=== PATIENT | male | born 1980 | race Caucasian/White ===

== ENCOUNTER 2018-05-22 12:15 | Emergency (ER) | payer OTHER ==
[2018-05-22 12:37] VITALS: TEMP 98.2
--- NOTE | 2018-05-22 13:23 | ED ---
General Adult HPI - General Source: patient, RN notes reviewed Mode of arrival: ambulatory Limitations: no limitations <Colton Green - Last Filed: 05/22/18 13:21> <Valentina White - Last Filed: 05/22/18 19:34> - General Chief complaint: Psychiatric Symptoms Stated complaint: Mental health Time Seen by Provider: 05/22/18 12:48 - History of Present Illness Initial comments: Patient 38-year-old male presenting to the emergency room today with a chief complaint of needing psychiatric evaluation. He does admit to suicidal thoughts. He does admit that 10 days ago he took approximately 20 mg of this and asked him was drinking alcohol. He states that he was passed out for few days. He states that when he came to he stopped taking Chantix which she started a few months ago and believes that maybe this was causing some of his proximal. He does admit that he's had increased family problems at home. He states that he's worried about violating his probation. Patient states still having thoughts of hurting himself by taking a bunch of pills. Patient denies any other complaints or symptoms. Patient denies any recent fever, chills, shortness of breath, chest pain, back pain, abdominal pain, nausea or vomiting, numbness or tingling, dysuria or hematuria, constipation or diarrhea, headaches or visual changes, or any other complaints. (Colton Green) - Related Data Home Medications Medication Instructions Recorded Confirmed ALPRAZolam [Xanax] 1 mg PO BID PRN 05/22/18 05/22/18 Allergies Allergy/AdvReac Type Severity Reaction Status Date / Time No Known Allergies Allergy Verified 05/22/18 12:59 Review of Systems ROS Other: All systems not noted in ROS Statement are negative. <Colton Green - Last Filed: 05/22/18 13:21> ROS Other: All systems not noted in ROS Statement are negative. <Valentina White - Last Filed: 05/22/18 19:34> ROS Statement: Those systems with pertinent positive or pertinent negative responses have been documented in the HPI. Past Medical History Additional Past Medical History / Comment(s): prolonged qt syndrome repaired History of Any Multi-Drug Resistant Organisms: None Reported Past Surgical History: Orthopedic Surgery Additional Past Surgical History / Comment(s): heart surg Past Psychological History: Anxiety, Bipolar, Depression Smoking Status: Current every day smoker Past Alcohol Use History: Abuse Past Drug Use History: None Reported, Prescription Drug Abuse <PeterColton - Last Filed: 05/22/18 13:21> General Exam Limitations: no limitations <GreenColton - Last Filed: 05/22/18 13:21> <Valentina White - Last Filed: 05/22/18 19:34> - General Exam Comments Initial Comments: General: The patient is awake and alert, in no distress, and does not appear acutely ill. Eye: Pupils are equal, round and reactive to light, extra-ocular movements are intact. No nystagmus. There is normal conjunctiva bilaterally. No signs of icterus. Ears, nose, mouth and throat: There are moist mucous membranes and no oral lesions. Neck: The neck is supple, there is no tenderness or JVD. Cardiovascular: There is a regular rate and rhythm. No murmur, rub or gallop is appreciated. Respiratory: Lungs are clear to auscultation, respirations are non-labored, breath sounds are equal. No wheezes, stridor, rales, or rhonchi. Musculoskeletal: Normal ROM, no tenderness. Strength 5/5. Sensation intact. Pulses equal bilaterally 2+. Neurological: A&O x 3. CN II-XII intact, There are no obvious motor or sensory deficits. Coordination appears grossly intact. Speech is normal. Skin: Skin is warm and dry and no rashes or lesions are noted. Psychiatric: Cooperative (PeterColton) Vital Signs 05/22/18 12:30 Temperature 98.2 F Pulse Rate 90 Respiratory 18 Rate Blood Pressure 144/89 Medical Decision Making <Colton Green - Last Filed: 05/22/18 13:21> <Valentina White - Last Filed: 05/22/18 19:34> - Medical Decision Making 38 old male patient presented to the emergency department today for suicidal ideation. Patient was seen and evaluated by emergency psychiatric services, assaults that he would benefit from admission. Patient will be transferred to [facility] crisis bed. (Valentina White) - Lab Data Lab Results 05/22/18 Range/Units 14:00 Urine Opiates Screen Not Detected (NotDetected) Ur Oxycodone Screen Not Detected (NotDetected) Urine Methadone Screen Not Detected (NotDetected) Ur Propoxyphene Screen Not Detected (NotDetected) Ur Barbiturates Screen Not Detected (NotDetected) U Tricyclic Antidepress Not Detected (NotDetected) Ur Phencyclidine Scrn Not Detected (NotDetected) Ur Amphetamines Screen Not Detected (NotDetected) U Methamphetamines Scrn Not Detected (NotDetected) U Benzodiazepines Scrn Not Detected (NotDetected) Urine Cocaine Screen Not Detected (NotDetected) U Marijuana (THC) Screen Not Detected (NotDetected) Disposition <Colton Green - Last Filed: 05/22/18 13:21> - Out of Hospital Transfer - Req. Specs Out of Hospital Transfer - Requested Specifics: Psychiatric Non-ICU (Crisis bed in [facility]) <Valentina White - Last Filed: 05/22/18 19:34> Clinical Impression: Suicidal ideation, Depression Disposition: TRANSFER TO PSYCH HOSP/UNIT Condition: Serious Referrals: None,Stated [Primary Care Provider] - 1-2 days
[2018-05-22 15:00] LABS: Amphetamine Screen,Urine Not Detected (NotDetected); Barbiturate Screen,Urine Not Detected (NotDetected); Benzodiazepines Screen,Urine Not Detected (NotDetected); Cocaine Screen,Urine Not Detected (NotDetected); Methadone Screen, Urine Not Detected (NotDetected); Opiate Screen,Urine Not Detected (NotDetected); Oxycodone Screen, Urine Not Detected (NotDetected); Phencyclidine Screen,Urine Not Detected (NotDetected); Tricyclic Antidepressant,Urine Not Detected (NotDetected); Urn Cannabinoid Scrn Not Detected (NotDetected)
[2018-05-22 20:02] VITALS: BP 110/91; PULSE 71; RESP 20
== END 2018-05-22 20:09 ==
LOC: EC 12:15
DX: F32.9 Major depressive disorder, single episode, unspecified (principal); R45.851 Suicidal ideations; F17.200 Nicotine dependence, unspecified, uncomplicated; Z86.79 Personal history of other diseases of the circulatory system; Z98.890 Other specified postprocedural states
CPT/HCPCS: 80306; 82075; 99285

== ENCOUNTER 2021-02-25 04:54 | Inpatient (IN) | payer OTHER ==
[2021-02-25] MEDS ORDERED: SODIUM CHLORIDE 0.9% 500 ML 500 ML IV STA (05:05)
[2021-02-25] MEDS ORDERED: SODIUM CHLORIDE 0.9% 1,000 ML IV STA (05:05)
[2021-02-25] MEDS ORDERED: THIAMINE 100 MG/ML 2 ML VIAL IM STA (05:05)
[2021-02-25] MEDS ORDERED: LORazepam 2 MG/ML INJ IV STA (05:06)
[2021-02-25] MEDS ORDERED: DIAZEPAM 5 MG/ML 2 ML INJ IVP STA (05:06)
--- NOTE | 2021-02-25 05:08 | ED ---
Altered Mental Status HPI - General Chief Complaint: Neuro Symptoms/Deficit Stated Complaint: Tremors Time Seen by Provider: 02/25/21 05:05 Source: patient, EMS, RN notes reviewed, old records reviewed Mode of arrival: EMS Limitations: altered mental status, physical limitation - History of Present Illness Initial Comments: This is a 41-year-old male to the ER for evaluation patient is very anxious tachycardic with tremorous shaking difficulty thinking. Patient has difficulty answering questions and has history of psychiatric illness admits to drinking. Patient states having difficulty walking and inability to think clearly. He does have history of same with prior hospital admission at [facility] Complaint: altered mental status, confusion, other (Withdrawal type symptoms) -: hour(s) Consistency of Symptoms: getting worse Context: alcohol abuse Associated Symptoms: weakness, difficulty walking - Related Data Home Medications Medication Instructions Recorded Confirmed ALPRAZolam [Xanax] 1 mg PO BID PRN 05/22/18 02/25/21 Atorvastatin [Lipitor] 10 mg PO HS 02/25/21 02/25/21 Brexpiprazole [Rexulti] 2 mg PO HS 02/25/21 02/25/21 Escitalopram [Lexapro] 20 mg PO HS 02/25/21 02/25/21 Meloxicam 15 mg PO HS 02/25/21 02/25/21 hydrOXYzine pamoate [hydrOXYzine 50 mg PO HS PRN 02/25/21 02/25/21 PAMOATE] lamoTRIgine [LaMICtal] 100 mg PO BID 02/25/21 02/25/21 Allergies Allergy/AdvReac Type Severity Reaction Status Date / Time No Known Allergies Allergy Verified 02/25/21 09:18 Review of Systems ROS Statement: Those systems with pertinent positive or pertinent negative responses have been documented in the HPI. ROS Other: All systems not noted in ROS Statement are negative. Past Medical History Additional Past Medical History / Comment(s): prolonged qt syndrome repaired History of Any Multi-Drug Resistant Organisms: None Reported Past Surgical History: Orthopedic Surgery Additional Past Surgical History / Comment(s): heart surg Past Psychological History: Anxiety, Bipolar, Depression Smoking Status: Current every day smoker Past Alcohol Use History: Abuse Past Drug Use History: None Reported, Prescription Drug Abuse General Exam Limitations: altered mental status, physical limitation General appearance: alert, anxious, in distress Head exam: Present: atraumatic, normocephalic, normal inspection Eye exam: Present: normal appearance, PERRL, EOMI. Absent: scleral icterus, conjunctival injection, periorbital swelling ENT exam: Present: normal exam, mucous membranes moist Neck exam: Present: normal inspection. Absent: tenderness, meningismus, lymphadenopathy Respiratory exam: Present: normal lung sounds bilaterally. Absent: respiratory distress, wheezes, rales, rhonchi, stridor Cardiovascular Exam: Present: normal rhythm, tachycardia, normal heart sounds. Absent: systolic murmur, diastolic murmur, rubs, gallop, clicks GI/Abdominal exam: Present: soft, normal bowel sounds. Absent: distended, tenderness, guarding, rebound, rigid Extremities exam: Present: normal inspection, full ROM, normal capillary refill. Absent: tenderness, pedal edema, joint swelling, calf tenderness Back exam: Present: normal inspection Neurological exam: Present: alert, oriented X3, CN II-XII intact Psychiatric exam: Present: normal affect, normal mood Skin exam: Present: warm, dry, intact, normal color. Absent: rash Course Vital Signs 02/25/21 02/25/21 02/25/21 04:56 06:00 07:50 Temperature 100.0 F H 98.9 F Pulse Rate 124 H 117 H 115 H Respiratory 18 18 18 Rate Blood Pressure 142/91 104/78 125/86 O2 Sat by Pulse 97 97 97 Oximetry 02/25/21 02/25/21 02/25/21 10:57 11:33 13:42 Temperature 99 F 98 F Pulse Rate 128 H 121 H 122 H Respiratory 20 20 20 Rate Blood Pressure 156/78 153/104 146/99 O2 Sat by Pulse 98 96 97 Oximetry 02/25/21 14:31 Temperature 98.2 F Pulse Rate 101 H Respiratory 18 Rate Blood Pressure 115/72 O2 Sat by Pulse 92 L Oximetry - Reevaluation(s) Reevaluation #1: 02/25/21 Medical record is reviewed Patient does appear to be in significant DTs with severe left foot abnormalities Patient is chronic alcoholic to be admitted for close monitoring Medical Decision Making - Medical Decision Making 41 male to the ED for active DTs, weakness, HypoK and Mg, patient to be admitted for close monitoring. Patient is requiring significant amount of sedation, but heart rate is improving, patient's perspiring is , he is continually complains of inability to walk and shaking - Lab Data Result diagrams: 02/25/21 05:14 02/25/21 16:17 Lab Results 02/25/21 02/25/21 02/25/21 Range/Units 05:14 05:14 05:14 WBC 4.6 (3.8-10.6) k/uL RBC 3.89 L (4.30-5.90) m/uL Hgb 12.7 L (13.0-17.5) gm/dL Hct 35.3 L (39.0-53.0) % MCV 90.7 (80.0-100.0) fL MCH 32.7 (25.0-35.0) pg MCHC 36.0 (31.0-37.0) g/dL RDW 15.2 (11.5-15.5) % Plt Count 41 L (150-450) k/uL MPV 9.8 Neutrophils % 48 % Lymphocytes % 40 % Monocytes % 7 % Eosinophils % 2 % Basophils % 1 % Neutrophils # 2.2 (1.3-7.7) k/uL Lymphocytes # 1.8 (1.0-4.8) k/uL Monocytes # 0.3 (0-1.0) k/uL Eosinophils # 0.1 (0-0.7) k/uL Basophils # 0.0 (0-0.2) k/uL Manual Slide Review Performed Sodium 137 (137-145) mmol/L Potassium 2.8 L (3.5-5.1) mmol/L Chloride 101 (98-107) mmol/L Carbon Dioxide 23 (22-30) mmol/L Anion Gap 13 mmol/L BUN 10 (9-20) mg/dL Creatinine 0.65 L (0.66-1.25) mg/dL Est GFR (CKD-EPI)AfAm >90 (>60 ml/min/1.73 sqM) Est GFR (CKD-EPI)NonAf >90 (>60 ml/min/1.73 sqM) Glucose 127 H (74-99) mg/dL Lactic Ac Sepsis Rflx Plasma Lactic Acid Ramos 3.5 H* (0.7-2.0) mmol/L Calcium 9.2 (8.4-10.2) mg/dL Phosphorus 4.5 (2.5-4.5) mg/dL Magnesium 1.4 L (1.6-2.3) mg/dL Total Bilirubin 0.2 (0.2-1.3) mg/dL AST 78 H (17-59) U/L ALT 87 H (4-49) U/L Alkaline Phosphatase 44 (38-126) U/L Creatine Kinase 761 H (55-170) U/L Troponin I (0.000-0.034) ng/mL Total Protein 5.8 L (6.3-8.2) g/dL Albumin 4.0 (3.5-5.0) g/dL Lipase 255 (23-300) U/L 02/25/21 02/25/21 Range/Units 05:14 05:45 WBC (3.8-10.6) k/uL RBC (4.30-5.90) m/uL Hgb (13.0-17.5) gm/dL Hct (39.0-53.0) % MCV (80.0-100.0) fL MCH (25.0-35.0) pg MCHC (31.0-37.0) g/dL RDW (11.5-15.5) % Plt Count (150-450) k/uL MPV Neutrophils % % Lymphocytes % % Monocytes % % Eosinophils % % Basophils % % Neutrophils # (1.3-7.7) k/uL Lymphocytes # (1.0-4.8) k/uL Monocytes # (0-1.0) k/uL Eosinophils # (0-0.7) k/uL Basophils # (0-0.2) k/uL Manual Slide Review Sodium (137-145) mmol/L Potassium (3.5-5.1) mmol/L Chloride (98-107) mmol/L Carbon Dioxide (22-30) mmol/L Anion Gap mmol/L BUN (9-20) mg/dL Creatinine (0.66-1.25) mg/dL Est GFR (CKD-EPI)AfAm (>60 ml/min/1.73 sqM) Est GFR (CKD-EPI)NonAf (>60 ml/min/1.73 sqM) Glucose (74-99) mg/dL Lactic Ac Sepsis Rflx Y Plasma Lactic Acid Ramos (0.7-2.0) mmol/L Calcium (8.4-10.2) mg/dL Phosphorus (2.5-4.5) mg/dL Magnesium (1.6-2.3) mg/dL Total Bilirubin (0.2-1.3) mg/dL AST (17-59) U/L ALT (4-49) U/L Alkaline Phosphatase (38-126) U/L Creatine Kinase (55-170) U/L Troponin I <0.012 (0.000-0.034) ng/mL Total Protein (6.3-8.2) g/dL Albumin (3.5-5.0) g/dL Lipase (23-300) U/L - EKG Data -: EKG Interpreted by Me (EKG is sinus tachycardia 116 pr 150 QRS 76 QTC 489) Critical Care Time Critical Care Time: Yes Total Critical Care Time: 31 Disposition Clinical Impression: Disorganized thought process, DTs (delirium tremens), Wernickes encephalopathy, Hypomagnesemia, Hypokalemia, Altered mental status Disposition: ADMITTED IP TO THIS [facility] Condition: Serious Is patient prescribed a controlled substance at d/c from ED?: No
[2021-02-25] MEDS ORDERED: KETOROLAC 15 MG/ML 1 ML VIAL IVP STA (05:15)
[2021-02-25] MEDS ORDERED: THIAMINE 500 MG in SODIUM CHLORIDE 0.9% 50 ML IVPB ONE (05:30)
[2021-02-25] MEDS: SODIUM CHLORIDE 0.9% 1,000 ML IV STA ×2 (05:31→06:59)
[2021-02-25] MEDS: DIAZEPAM 5 MG/ML 2 ML INJ IVP SCH ×2 (05:37→09:05)
[2021-02-25 05:39] LABS: Basophils % (A) 1 %; Eosinophils # (A) 0.1 k/uL (0-0.7); Eosinophils % (A) 2 %; HCT 35.3 % (39.0-53.0); HGB 12.7 gm/dL (13.0-17.5); Lymphocytes # (A) 1.8 k/uL (1.0-4.8); Lymphocytes % (A) 40 %; MCH 32.7 pg (25.0-35.0); MCV 90.7 fL (80.0-100.0); Mean Platelet Volume 9.8; Monocytes # (A) 0.3 k/uL (0-1.0); Monocytes % (A) 7 %; Neutrophils # (A) 2.2 k/uL (1.3-7.7); Neutrophils % (A) 48 %; RBC 3.89 m/uL (4.30-5.90); RDW 15.2 % (11.5-15.5); WBC 4.6 k/uL (3.8-10.6)
[2021-02-25 05:45] LABS: AST 78 U/L (17-59); African American GFR (CKD) >90 (>60 ml/min/1.73 sqM); Alkaline Phosphatase 44 U/L (38-126); Blood Urea Nitrogen 10 mg/dL (9-20); Carbon Dioxide 23 mmol/L (22-30); Glucose 127 mg/dL (74-99); Non-African American GFR(CKD) >90 (>60 ml/min/1.73 sqM); Total Bilirubin 0.2 mg/dL (0.2-1.3); Total Protein 5.8 g/dL (6.3-8.2)
[2021-02-25 06:02] LABS: ALT 87 U/L (4-49); Anion Gap 13 mmol/L; Calcium 9.2 mg/dL (8.4-10.2); Chloride 101 mmol/L (98-107); Creatine Kinase 761 U/L (55-170); Lipase 255 U/L (23-300); Magnesium 1.4 mg/dL (1.6-2.3); Phosphorus 4.5 mg/dL (2.5-4.5); Potassium 2.8 mmol/L (3.5-5.1); Sodium 137 mmol/L (137-145)
[2021-02-25 06:06] LABS: Platelet Count 41 k/uL (150-450)
[2021-02-25] MEDS ORDERED: POTASSIUM BICARBONATE/CIT AC 20 MEQ TABLET.EFF PO ONE (06:30)
[2021-02-25] MEDS ORDERED: NALOXONE 0.4 MG/ML 1 ML VIAL IV PRN (06:51)
[2021-02-25] MEDS ORDERED: MORPHINE SULFATE 4 MG/ML SYRINGE IV PRN (06:51)
[2021-02-25] MEDS ORDERED: ONDANSETRON 4 MG/2 ML VIAL IVP PRN (06:51)
[2021-02-25] MEDS: MAGNESIUM SULFATE-D5W PMX 1 GM in DEXTROSE/WATER 1 100ML.BAG IVPB SCH ×3 (06:52→09:04)
[2021-02-25] MEDS: LORazepam 2 MG/ML INJ IV PRN ×10 (06:57→23:21)
[2021-02-25] MEDS: POTASSIUM CHLORIDE 10 MEQ in WATER FOR INJECTION 1 100ML.BAG IVPB SCH ×4 (07:45→11:25)
[2021-02-25] MEDS: DEXTROSE 5%-0.45% NACL 1,000 ML IV SCH ×2 (10:19→20:08)
[2021-02-25 10:49] LABS: Appearance,Urine Clear (Clear); Bilirubin,Urine Negative (Negative); Blood,Urine Negative (Negative); Calcium Oxalate Crystals,Urine Rare /hpf; Color,Urine Yellow; Glucose,Urine (UA) Negative (Negative); Hyaline Casts,Urine 5 /lpf (0-2); Ketones,Urine Negative (Negative); Leukocyte Esterase,Urine Small (Negative); Mucus,Urine Few /hpf; Nitrite,Urine Negative (Negative); Protein,Urine Trace (Negative); RBC,Urine 1 /hpf (0-5); Specific Gravity,Urine 1.019 (1.001-1.035); Squamous Epithelial Cell,Urine <1 /hpf (0-4); Urobilinogen,Urine <2.0 mg/dL (<2.0); WBC,Urine 19 /hpf (0-5)
[2021-02-25] MEDS: diazePAM 5 MG TAB PO SCH ×3 (11:22→20:12)
[2021-02-25] MEDS: MULTIVITAMINS, THERA 1 EACH TAB PO SCH (11:23)
[2021-02-25] MEDS ORDERED: NICOTINE 21MG/24HR PATCH TRANSDERM STA (11:35)
[2021-02-25] MEDS: METOPROLOL TARTRATE 12.5 MG TAB PO SCH ×3 (11:38→20:10)
[2021-02-25] MEDS ORDERED: HALOPERIDOL LACTATE 5 MG/ML 1 ML VIAL IM STA (12:32)
[2021-02-25] MEDS ORDERED: cloNIDine 0.1 MG/24HR PATCH TRANSDERM SCH (13:30)
--- NOTE | 2021-02-25 14:32 | P.CNPUL ---
History of Present Illness Consult date: 02/25/21 Requesting physician: Booker Cooney Reason for consult: other Chief complaint: Alcohol withdrawal syndrome. History of present illness: Pulmonary consult dated 02/25/2021. 41-year-old male, who is brought into the emergency room by EMS for mental status changes. The patient apparently appeared to be very anxious, tachycardic, with tremors. He also had difficulty thinking. The patient appa rently has a history of heavy alcohol abuse, and was seen in the emergency room, and admitted, for alcohol withdrawal syndrome. The patient currently is in the emergency room. He is getting saline at 75 mL an hour. The patient is not receiving any supplemental oxygen. He recently got some additional medications including benzodiazepines and narcotics, and is unable to give any additional history at this time. All the history is obtained from the emergency department note. His home medications apparently only include Xanax. He has no ALLERGIES. The patient apparently has a history of prolonged QT syndrome. He also suffers some anxiety, bipolar disorder, and depression, and apparently is a current every day smoker, and doesn't abuse alcohol. White count 4.6, hemoglobin 12.7, hematocrit 35.3, platelet count 41,000. Sodium 137, potassium 2.8, chlorides 101, CO2 23, anion gap 13, BUN 10, creatinine 0.65. Glucose 127 active gas at 3. 5 repeat 1.7 AST 78, ALT 87, CK 761 lipase 255. Urine shows trace protein, small amount of leukocyte esterase, 1 RBC 19 WBCs but no bacteria. No chest x- ray to review. Review of Systems A review of systems cannot be obtained, as the patient has been sedated heavily with medication. Past Medical History Additional Past Medical History / Comment(s): prolonged qt syndrome repaired History of Any Multi-Drug Resistant Organisms: None Reported Past Surgical History: Orthopedic Surgery Additional Past Surgical History / Comment(s): heart surg Past Psychological History: Anxiety, Bipolar, Depression Smoking Status: Current every day smoker Past Alcohol Use History: Abuse Past Drug Use History: None Reported, Prescription Drug Abuse Medications and Allergies Home Medications Medication Instructions Recorded Confirmed Type ALPRAZolam [Xanax] 1 mg PO BID PRN 05/22/18 02/25/21 History Atorvastatin [Lipitor] 10 mg PO HS 02/25/21 02/25/21 History Brexpiprazole [Rexulti] 2 mg PO HS 02/25/21 02/25/21 History Escitalopram [Lexapro] 20 mg PO HS 02/25/21 02/25/21 History Meloxicam 15 mg PO HS 02/25/21 02/25/21 History hydrOXYzine pamoate [hydrOXYzine 50 mg PO HS PRN 02/25/21 02/25/21 History PAMOATE] lamoTRIgine [LaMICtal] 100 mg PO BID 02/25/21 02/25/21 History Allergies Allergy/AdvReac Type Severity Reaction Status Date / Time No Known Allergies Allergy Verified 02/25/21 09:18 Physical Exam Osteopathic Statement: *. No significant issues noted on an osteopathic structural exam other than those noted in the History and Physical/Consult. Vitals: Vital Signs Temp Pulse Resp BP Pulse Ox 02/25/21 13:42 98 F 122 H 20 146/99 97 02/25/21 11:33 99 F 121 H 20 153/104 96 02/25/21 10:57 128 H 20 156/78 98 02/25/21 07:50 98.9 F 115 H 18 125/86 97 02/25/21 06:00 117 H 18 104/78 97 02/25/21 04:56 100.0 F H 124 H 18 142/91 97 Intake and Output 02/24/21 02/25/21 02/25/21 22:59 06:59 14:59 Other: Weight 90.718 kg No acute distress, heavily sedated, and poorly arousable at this point. HEENT examination is grossly unremarkable. Neck supple. Full range of motion. No adenopathy thyromegaly or neck vein distention. Cardiovascular examination reveals regular rhythm rate. S1-S2 normal. No S3 or S4. No discernible murmur noted. Heart rate 122 bpm. Lungs reveal mostly clear breath sounds. A few scattered rhonchi. No wheezes or crackles. Breath sounds are equal bilaterally. Abdomen soft bowel sounds are heard. No masses or tenderness. Extremities are intact. No cyanosis clubbing or edema. Skin is without rash or lesion. Neurologic examination could not be accurately assessed. Results - Laboratory Findings CBC and BMP: 02/25/21 05:14 02/25/21 05:14 Abnormal lab findings: Abnormal Labs 02/25/21 02/25/21 02/25/21 05:14 05:14 05:14 RBC 3.89 L Hgb 12.7 L Hct 35.3 L Plt Count 41 L Potassium 2.8 L Creatinine 0.65 L Glucose 127 H Plasma Lactic Acid Ramos 3.5 H* Magnesium 1.4 L AST 78 H ALT 87 H Creatine Kinase 761 H Total Protein 5.8 L Urine Protein Ur Leukocyte Esterase Urine WBC Calcium Oxalate Crystal Hyaline Casts Urine Mucus 02/25/21 10:15 RBC Hgb Hct Plt Count Potassium Creatinine Glucose Plasma Lactic Acid Ramos Magnesium AST ALT Creatine Kinase Total Protein Urine Protein Trace H Ur Leukocyte Esterase Small H Urine WBC 19 H Calcium Oxalate Crystal Rare H Hyaline Casts 5 H Urine Mucus Few H Assessment and Plan Assessment: History of heavy alcohol abuse, rule out alcohol withdrawal syndrome/delirium tremens. History of prolonged QT syndrome. Thrombocytopenia, likely related to bone marrow suppression caused by alcohol. Hypokalemia. Mild lactic acidosis. Mild elevations of LFT's. Plan: Plan dated 02/25/2021 The patient will be monitored in the ICU. The potassium will be replaced. He'll be given Ativan per the [facility] protocol. Additional recommendations and suggestions are forthcoming. Prognosis is guarded. Time with Patient: Greater than 30
[2021-02-25 14:51] LABS: Glucose,Whole Blood 94 mg/dL (75-99)
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
[2021-02-25] MEDS ORDERED: NICOTINE 21MG/24HR PATCH TRANSDERM SCH (16:00)
[2021-02-25] MEDS ORDERED: Potassium Replacement Protocol 1 EACH MISC MISCELLANE PRN (17:08)
[2021-02-25] MEDS: lamoTRIgine 100 MG TAB PO SCH ×2 (17:59→23:21)
[2021-02-25] MEDS: THIAMINE 100 MG TAB PO SCH (17:59)
[2021-02-25] MEDS: POTASSIUM CHLORIDE ER 20 MEQ TAB.ER PO SCH ×2 (17:59→20:08)
[2021-02-25] MEDS ORDERED: THIAMINE 500 MG in SODIUM CHLORIDE 0.9% 100 ML IVPB SCH (18:00)
[2021-02-25] MEDS: MELOXICAM 7.5 MG TAB PO SCH (20:08)
[2021-02-25] MEDS: ATORVASTATIN 10 MG TAB PO SCH (20:10)
[2021-02-25] MEDS: FAMOTIDINE 20 MG TAB PO SCH (20:10)
[2021-02-25] MEDS: ESCITALOPRAM 20 MG TAB PO SCH (20:10)
[2021-02-25] MEDS: NON FORMULARY DRUG (Brexpiprazole [Rexulti] 2 MG Tablet) PO SCH (21:49)
[2021-02-26] MEDS: DEXTROSE 5%-0.45% NACL 1,000 ML IV SCH ×4 (01:36→23:50)
[2021-02-26 04:43] LABS: Basophils % (A) 1 %; Eosinophils # (A) 0.1 k/uL (0-0.7); Eosinophils % (A) 2 %; HGB 12.2 gm/dL (13.0-17.5); Lymphocytes # (A) 1.4 k/uL (1.0-4.8); Lymphocytes % (A) 28 %; MCH 31.5 pg (25.0-35.0); MCHC 33.9 g/dL (31.0-37.0); MCV 92.8 fL (80.0-100.0); Mean Platelet Volume 8.4; Monocytes # (A) 0.4 k/uL (0-1.0); Monocytes % (A) 7 %; Neutrophils # (A) 2.9 k/uL (1.3-7.7); Neutrophils % (A) 59 %; RBC 3.88 m/uL (4.30-5.90); RDW 15.2 % (11.5-15.5)
[2021-02-26 04:45] LABS: ALT 93 U/L (4-49); AST 84 U/L (17-59); African American GFR (CKD) >90 (>60 ml/min/1.73 sqM); Albumin 3.5 g/dL (3.5-5.0); Alkaline Phosphatase 47 U/L (38-126); Anion Gap 7 mmol/L; Blood Urea Nitrogen 9 mg/dL (9-20); Calcium 8.1 mg/dL (8.4-10.2); Carbon Dioxide 23 mmol/L (22-30); Chloride 104 mmol/L (98-107); Glucose 128 mg/dL (74-99); Magnesium 1.9 mg/dL (1.6-2.3); Non-African American GFR(CKD) >90 (>60 ml/min/1.73 sqM); Phosphorus 3.4 mg/dL (2.5-4.5); Potassium 3.5 mmol/L (3.5-5.1); Sodium 134 mmol/L (137-145); Total Bilirubin 0.3 mg/dL (0.2-1.3); Total Protein 5.4 g/dL (6.3-8.2)
[2021-02-26 05:16] LABS: Platelet Count 166 k/uL (150-450)
[2021-02-26] MEDS ORDERED: Magnesium Replacement Protocol 1 EACH MISC MISCELLANE PRN (06:00)
[2021-02-26] MEDS: LORazepam 2 MG/ML INJ IV PRN ×3 (06:09→20:15)
[2021-02-26] MEDS: POTASSIUM CHLORIDE ER 20 MEQ TAB.ER PO SCH ×2 (06:11→07:18)
[2021-02-26] MEDS: THIAMINE 100 MG TAB PO SCH (06:11)
[2021-02-26] MEDS: MAGNESIUM SULFATE-D5W PMX 1 GM in DEXTROSE/WATER 1 100ML.BAG IVPB SCH ×2 (06:12→07:18)
[2021-02-26 06:17] LABS: Prothrombin Time 10.4 sec (9.0-12.0)
[2021-02-26] MEDS: diazePAM 5 MG TAB PO SCH ×2 (10:07→16:39)
[2021-02-26] MEDS: FAMOTIDINE 20 MG TAB PO SCH ×2 (10:09→20:02)
[2021-02-26] MEDS: lamoTRIgine 100 MG TAB PO SCH ×2 (10:10→20:02)
[2021-02-26] MEDS: METOPROLOL TARTRATE 12.5 MG TAB PO SCH ×3 (10:11→22:07)
[2021-02-26] MEDS: NICOTINE 21MG/24HR PATCH TRANSDERM SCH (10:12)
[2021-02-26] MEDS: MULTIVITAMINS, THERA 1 EACH TAB PO SCH (10:16)
--- NOTE | 2021-02-26 11:07 | P.PN ---
Subjective Progress Note Date: 02/26/21 Principal diagnosis: Alcohol withdrawal syndrome Pulmonary consult dated 02/25/2021. 41-year-old male, who is brought into the emergency room by EMS for mental status changes. The patient apparently appeared to be very anxious, tachycardic, with tremors. He also had difficulty thinking. The patient apparently has a history of heavy alcohol abuse, and was seen in the emergency room, and admitted, for alcohol withdrawal syndrome. The patient currently is in the emergency room. He is getting saline at 75 mL an hour. The patient is not receiving any supplemental oxygen. He recently got some additional medications including benzodiazepines and narcotics, and is unable to give any additional history at this time. All the history is obtained from the emergency department note. His home medications apparently only include Xanax. He has no ALLERGIES. The patient apparently has a history of prolonged QT syndrome. He also suffers some anxiety, bipolar disorder, and depression, and apparently is a current every day smoker, and doesn't abuse alcohol. White count 4.6, hemoglobin 12.7, hematocrit 35.3, platelet count 41,000. Sodium 137, potassium 2.8, chlorides 101, CO2 23, anion gap 13, BUN 10, creatinine 0.65. Glucose 127 active gas at 3. 5 repeat 1.7 AST 78, ALT 87, CK 761 lipase 255. Urine shows trace protein, small amount of leukocyte esterase, 1 RBC 19 WBCs but no bacteria. No chest x-ray to review. Progress note dated 02/26/2021. 41-year-old male who we saw yesterday in the emergency department. He was being admitted for mental status changes, and lower extremity weakness. He drinks excessive amounts of vodka from time to time he tells us. Anyway, the patient's doing much better today. He's on room air. He's getting dextrose with half- normal saline at 130 mL an hour. The patient has been receiving thiamine. He is much more awake and alert today. He did receive about 6 mg of Ativan overnight. Today he is able to have a conversation. He states that one of the reasons he is in the hospital is because of lower extremity weakness. He states that he has a very unsteady gait. He stood up, and he was very wobbly on his legs. We were concerned about Wernicke's syndrome. Anyway, the patient can be transferred out of the intensive care unit. We'll ask neurology to see him. White count 5, hemoglobin 12.2, hematocrit 36.0, platelet count 166,000. PTT is 21. Sodium 134, potassium 3.5, chlorides 104, CO2 23, anion gap 7, BUN 9, creatinine 0.53. Objective - Vital Signs Vital signs: Vital Signs Temp 98.2 F 02/26/21 04:00 Pulse 93 02/26/21 08:00 Resp 18 02/26/21 08:00 BP 114/74 02/26/21 09:00 Pulse Ox 94 L 02/26/21 08:00 Intake & Output 02/25/21 02/26/21 02/26/21 18:59 06:59 18:59 Intake Total 460 2435 590 Output Total 0 1120 600 Balance 460 1315 -10 Weight 90.718 kg 97.3 kg Intake: IV 460 1560 490 Dextrose 5%-0.45% NaCl 1, 460 1560 390 000 ml @ 130 mls/hr IV . Q7H42M SARAH Rx#:[id number] Magnesium Sulfate-D5w Pmx 100 1 gm In Dextrose/Water 1 100ml.bag @ 100 mls/hr IVPB Q1H SARAH Rx#: [id number] Intake, IV Titration 875 100 Amount Sodium Chloride 0.9% 1, 875 100 000 ml @ 130 mls/hr IV . Q7H42M STA Rx#:[id number] Output: Urine 0 1120 600 Other: Voiding Method Urinal Urinal # Voids 0 0 1 # Bowel Movements 1 - Exam No acute distress, Much more awake and alert. Not on any supplemental oxygen. HEENT examination is grossly unremarkable. Neck supple. Full range of motion. No adenopathy thyromegaly or neck vein distention. Cardiovascular examination reveals regular rhythm rate. S1-S2 normal. No S3 or S4. No discernible murmur noted. Heart rate 93 bpm. Lungs reveal mostly clear breath sounds. A few scattered rhonchi. No wheezes or crackles. Breath sounds are equal bilaterally. Abdomen soft bowel sounds are heard. No masses or tenderness. Extremities are intact. No cyanosis clubbing or edema. Skin is without rash or lesion. Neurologic examination reveals the patient to be much more awake and alert. He is able to carry on a conversation. He was very fidgety with his hands and fingers. He did seem very wobbly when he stood up out of bed. - Labs CBC & Chem 7: 02/26/21 04:07 02/26/21 04:07 Labs: Abnormal Lab Results - Last 24 Hours (Table) 02/25/21 02/25/21 02/26/21 Range/Units 10:15 16:17 04:07 RBC 3.88 L (4.30-5.90) m/uL Hgb 12.2 L (13.0-17.5) gm/dL Hct 36.0 L (39.0-53.0) % APTT (22.0-30.0) sec Sodium (137-145) mmol/L Potassium 3.0 L (3.5-5.1) mmol/L Creatinine (0.66-1.25) mg/dL Glucose (74-99) mg/dL Calcium (8.4-10.2) mg/dL AST (17-59) U/L ALT (4-49) U/L Total Protein (6.3-8.2) g/dL Urine Protein Trace H (Negative) Ur Leukocyte Esterase Small H (Negative) Urine WBC 19 H (0-5) /hpf Calcium Oxalate Crystal Rare H (None) /hpf Hyaline Casts 5 H (0-2) /lpf Urine Mucus Few H (None) /hpf 02/26/21 02/26/21 Range/Units 04:07 05:44 RBC (4.30-5.90) m/uL Hgb (13.0-17.5) gm/dL Hct (39.0-53.0) % APTT 21.0 L (22.0-30.0) sec Sodium 134 L (137-145) mmol/L Potassium (3.5-5.1) mmol/L Creatinine 0.53 L (0.66-1.25) mg/dL Glucose 128 H (74-99) mg/dL Calcium 8.1 L (8.4-10.2) mg/dL AST 84 H (17-59) U/L ALT 93 H (4-49) U/L Total Protein 5.4 L (6.3-8.2) g/dL Urine Protein (Negative) Ur Leukocyte Esterase (Negative) Urine WBC (0-5) /hpf Calcium Oxalate Crystal (None) /hpf Hyaline Casts (0-2) /lpf Urine Mucus (None) /hpf Microbiology - Last 24 Hours (Table) 02/25/21 10:15 Urine Culture - Preliminary Urine,Voided Assessment and Plan Assessment: History of heavy alcohol abuse, rule out alcohol withdrawal syndrome/delirium tremens. Lower extremity weakness, with possible ataxic gait, rule out Wernicke's syndrome. History of prolonged QT syndrome. Thrombocytopenia, likely related to bone marrow suppression caused by alcohol. Hypokalemia. Mild lactic acidosis. Mild elevations of LFT's. Plan: Plan dated 02/25/2021 The patient will be monitored in the ICU. The potassium will be replaced. He'll be given Ativan per the [facility] protocol. Additional recommendations and suggestions are forthcoming. Prognosis is guarded. Plan dated 02/26/2021. Currently, the patient is not requiring any supplemental oxygen. The patient remains on dextrose with half-normal saline at 130 mL an hour. He did receive about 6 mg of Ativan overnight. The patient could be transferred out to the general medical floor. The patient has been receiving thiamine. We'll ask neurology to see him to rule out Wernicke's syndrome. Additional recommendations and suggestions are forthcoming. Time with Patient: Less than 30
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
--- NOTE | 2021-02-26 13:55 | P.CNNES ---
History of Present Illness Consult date: 02/26/21 Requesting physician: Ana Antunez Reason for Consult: Difficulty walking, Wernicke syndrome History of Present Illness: This is a 41-year-old gentleman with history of chronic heavy alcohol use, bipolar and generalized anxiety disorder who use presented emergency department on 02/25/2021 for feel tremulous/shaking of entire body. Patient stated that about 4 days ago he noticed that he's having unsteady walking and progressively getting worse to the point that he could not get out of the lower. He said he fell because of his unsteady walking. He stated then that 2 days ago he felt like he was shaken throughout his body. He denied any loss of consciousness, urinary bowel incontinence, tongue bite. Patient denied of any fever recently. Any upper respiratory tract infection recently. He denies any numbness or any tingling. He denies any visual disturbance, any difficulty getting his words out, any double vision, any difficulty swallowing. He denies any numbness tingling that started in the feet and went up. He felt like he was not thinking clearly about 2 days ago but currently is doing better. The patient and he has a history of chronic alcohol use and he binges drinks vodka once a month lasting 3-7 days and he drinks about half a gallon a day when he binges. The last time he had binge drink was about 2 weeks ago. The patient has been drinking most of his life he stated. He stated that he had similar episode that he had unsteady gait and could not walk and that was about 4 month ago and the he was evaluated at [facility]. He stated that he had MRI of the brain and it was the normal. He had physical therapy and the he stated that he was back on his feet walking without any issues. Patient stated that he has chronic lower back pain but that that hasn't changed. Currently he does not have any diarrhea and I stated that no urinary or bowel incontinence. Patient does smoke 1 pack a day. He denies any illicit drug use. Patient denies any medication change and it's been wild. Patient feels his symptoms is drastically getting better but he still not acting his baseline. He feels his tremors has drastically improved. Patient denies any history of seizures or family history of seizures. Patient is on Lamictal for mood and he does not have any seizures. Patient denies any family history similar to his. Home medication consist of Lexapro, Lamictal 100 mg 1 tablet twice a day, meloxicam, Lipitor 10 mg daily at bedtime, Xanax 1 mg twice a day when necessary (takes it 1 tab every 3-4 days and it has been going on for years). In the hospital started patient the has Wernicke syndrome. And that was admitted per the medical record for alcohol withdrawal syndrome. He is on [facility] protocol. Some of the work-up: Initial vital signs blood pressure of 142/91, heart rate of 124, respiratory of 18, temperature initially is 100.0 Fahrenheit oral and pulse ox of 97% at room air. Patient has not had any further elevation of temperature. Patient heart r ate came T and initially was in the 110 to 120s and most recently it's about 90s to 110. White blood cell on presentations 4.6 and the repeat is 5.0 thousand which is within normal limits. Platelet count on presentation 41 which is significantly low with a repeat is 166. MCV is 90.7 which is within normal limits. Sodium is 137, calcium is 9.2, creatinine is 0.65 which are within normal limits On presentation the AST 78 and ALT is 87 which are slightly elevated, glucose 127 also minimally elevated not but not drastically. Plasma lactic acid venous 3.5 which is elevated. The he K level DCCLXI which is slightly elevated lipase to 55 which is within normal limits Review of Systems Review of system: The 12 point system was reviewed and apparent positive and negative per HPI. Past Medical History Additional Past Medical History / Comment(s): prolonged qt syndrome repaired History of Any Multi-Drug Resistant Organisms: None Reported Past Surgical History: Orthopedic Surgery Additional Past Surgical History / Comment(s): heart surg Past Anesthesia/Blood Transfusion Reactions: No Reported Reaction Past Psychological History: Anxiety, Bipolar, Depression Smoking Status: Current every day smoker Past Alcohol Use History: Abuse Past Drug Use History: None Reported, Prescription Drug Abuse Medications and Allergies Home Medications Medication Instructions Recorded Confirmed Type ALPRAZolam [Xanax] 1 mg PO BID PRN 05/22/18 02/25/21 History Atorvastatin [Lipitor] 10 mg PO HS 02/25/21 02/25/21 History Brexpiprazole [Rexulti] 2 mg PO HS 02/25/21 02/25/21 History Escitalopram [Lexapro] 20 mg PO HS 02/25/21 02/25/21 History Meloxicam 15 mg PO HS 02/25/21 02/25/21 History hydrOXYzine pamoate [hydrOXYzine 50 mg PO HS PRN 02/25/21 02/25/21 History PAMOATE] lamoTRIgine [LaMICtal] 100 mg PO BID 02/25/21 02/25/21 History Allergies Allergy/AdvReac Type Severity Reaction Status Date / Time No Known Allergies Allergy Verified 02/25/21 09:18 Physical Examination - Vital Signs Vital Signs: Vital Signs Temp Pulse Resp BP Pulse Ox 02/26/21 09:00 114/74 02/26/21 08:00 93 18 101/61 94 L 02/26/21 07:38 95 02/26/21 07:00 103 H 21 109/73 96 02/26/21 06:00 96 16 130/85 95 02/26/21 05:00 94 25 H 123/89 95 02/26/21 04:00 98.2 F 106 H 18 120/91 96 02/26/21 03:00 110 H 20 110/61 96 02/26/21 02:00 91 21 124/80 94 L 02/26/21 01:00 86 19 123/76 95 02/26/21 00:00 98.7 F 88 20 113/79 95 02/25/21 23:00 89 19 115/79 95 02/25/21 22:00 84 20 119/82 96 02/25/21 21:00 89 22 124/82 95 02/25/21 20:00 99.0 F 88 20 120/79 96 02/25/21 19:00 87 21 116/87 96 02/25/21 18:00 101 H 23 119/73 97 02/25/21 17:00 87 16 119/77 95 02/25/21 16:00 97.2 F L 96 23 120/79 92 L 02/25/21 15:00 90 24 132/76 93 L 02/25/21 14:50 96.6 F L 96 16 96 02/25/21 14:48 96 28 H 98 02/25/21 14:31 98.2 F 101 H 18 115/72 92 L 02/25/21 13:42 98 F 122 H 20 146/99 97 02/25/21 11:33 99 F 121 H 20 153/104 96 Intake and Output 02/25/21 02/26/21 02/26/21 22:59 06:59 14:59 Intake Total 1130 1765 590 Output Total 620 500 600 Balance 510 1265 -10 Intake: IV 980 1040 490 Dextrose 5%-0.45% NaCl 1, 980 1040 390 000 ml @ 130 mls/hr IV . Q7H42M SARAH Rx#:[id number] Magnesium Sulfate-D5w Pmx 100 1 gm In Dextrose/Water 1 100ml.bag @ 100 mls/hr IVPB Q1H SARAH Rx#: [id number] Intake, IV Titration 150 725 100 Amount Sodium Chloride 0.9% 1, 150 725 100 000 ml @ 130 mls/hr IV . Q7H42M STA Rx#:[id number] Output: Urine 620 500 600 Other: Voiding Method Urinal Urinal Urinal # Voids 0 0 1 # Bowel Movements 1 Weight 97.3 kg GENERAL: The patient is lying in bed and is not in acute distress. CHEST: The heart rate is regular rate rhythm. No murmurs to auscultation. No carotid bruit bilaterally. LUNG: Clear to auscultation bilaterally no wheezing noted throughout. Not labored breathing. ABDOMEN/GI: Bowel sounds present in all 4 quadrants. No tenderness to palpation throughout. NEUROLOGICAL: Higher mental function: The patient is awake, alert, oriented to self, place and time. Patient is following commands. No aphasia and no neglect. Cranial nerves: The pupils are round, equal and reactive to light and accommodation. Visual dennis are full to confrontation throughout. Extraocular movement is intact no nystagmus is noted. Facial sensation is normal to touch throughout. The facial strength is normal throughout. Hearing is normal bilaterally to hand rub. Tongue is midline and moved [id number] without any difficulty. No dysarthria is noted. Shoulder shrug is normal bilaterally. Motor: Seems white base gait. The strength is bilateral ankle eversion are 2- 3/5. Otherwise 5 over 5 throughout. Normal tone and bulk. Patient had arched feet bilaterally. No spontaneous resting tremors or jerking of any extremities. Cerebellum: Normal finger to nose heel to kang bilaterally. Sensation: Sensation is normal to touch throughout. But to pinprick decreased from mid-calf all way down to tip of toes. Reflexes (right/left): 2+ throughout except ankles are 0 bilaterally.. Plantars are mute bilaterally. Results - Laboratory Findings CBC and BMP: 02/26/21 04:07 02/26/21 04:07 Abnormal Lab Findings: Abnormal Labs 02/25/21 02/25/21 02/25/21 05:14 05:14 05:14 RBC 3.89 L Hgb 12.7 L Hct 35.3 L Plt Count 41 L APTT Sodium Potassium 2.8 L Creatinine 0.65 L Glucose 127 H Plasma Lactic Acid Ramos 3.5 H* Calcium Magnesium 1.4 L AST 78 H ALT 87 H Creatine Kinase 761 H Total Protein 5.8 L Urine Protein Ur Leukocyte Esterase Urine WBC Calcium Oxalate Crystal Hyaline Casts Urine Mucus 02/25/21 02/25/21 02/26/21 10:15 16:17 04:07 RBC 3.88 L Hgb 12.2 L Hct 36.0 L Plt Count APTT Sodium Potassium 3.0 L Creatinine Glucose Plasma Lactic Acid Ramos Calcium Magnesium AST ALT Creatine Kinase Total Protein Urine Protein Trace H Ur Leukocyte Esterase Small H Urine WBC 19 H Calcium Oxalate Crystal Rare H Hyaline Casts 5 H Urine Mucus Few H 02/26/21 02/26/21 04:07 05:44 RBC Hgb Hct Plt Count APTT 21.0 L Sodium 134 L Potassium Creatinine 0.53 L Glucose 128 H Plasma Lactic Acid Ramos Calcium 8.1 L Magnesium AST 84 H ALT 93 H Creatine Kinase Total Protein 5.4 L Urine Protein Ur Leukocyte Esterase Urine WBC Calcium Oxalate Crystal Hyaline Casts Urine Mucus Assessment and Plan Assessment: * Unsteady gait: (per patient for 4 days prior to presentation but improving. on examination he has unsteady gait, decreased sensation to pinprick from mid- calf to tips of toes, absent ankle reflexes and arched feet and weakness ankle eversion. Has similar episode 4 months ago and resolved). Seems there is component of neuropathy due severe alcohol use BUT cannot rule out Charcot florencio tooth disease (especially with pes cavus bilaterally, neuropathy and weakness of lower extremities and chronic lower back pain). * Bipolar * Generalized anxiety disorder * Chronic Heavy alcohol use * Nicotine use Plan: * Patient is on thiamine 100 mg twice a day and the patient received thiamine 100 mg once IV for the next two day then switch to PO. * Thiamine level is ordered by ICU team. * I ordered MRI brain, Cervical and Lumbar spine. Ordered vitamin B12, folate, TSH level and HbA1c. * Patient is on Ativan for CIWA protocol and will defer managment to primary team and ICU team. * Physical therapy and occupation therapy are consulted. * Recommend EMG with NCS as outpatient. * We'll defer the rest of the medical measurements the primary and ICU team. * Patient was counseled on alcohol and tobacco cessation. * Patient was notified to follow-up with a neurologist as outpatient within 1-2 weeks as outpatient. Thank you for the consultation. Duy Real MD Neuro-Hospitalist Time with Patient: Greater than 30
--- NOTE | 2021-02-26 15:35 | P.PN ---
Progress Note - Text Progress Note Date: 02/26/21 Chief Complaint: Tremors History of presenting complaint: This is a 41-year-old patient, who follows with Dr. Tarik pierson. Patient has a known history of bipolar disorder, binge alcohol drinking, smoker. Patient is brought in by the EMS. When EMS arrived patient was feeling very shaky tremors, finding it difficult to walk. Perspiring. Is able to answer questions. In the ER patient has been hallucinating and having delusions. He told me that the i, sitter] is one of the people "broken into his house.. He is very restless moving about. He is talking to himself. His warts acquired. Sentence that unconnected. He is anxious. He will often use that F word. Sometimes he tends to get off the bed but then goes back after given instructions to the same. He does binge drinking. Drinks peppermint schnapps. Does smoke cigarettes. Denies use of any other recreational drugs. He is on CIWA scale. Admitted with acute DTs., Type II lactic acidosis. Was put on Valium, CIWA scale, sitter. IV fluids. Thiamine. Because of high CIWA scale was ICU. 02/26/2021: Patient doing much better this morning. In the ICU. Had a good breakfast. No hallucinations or delirium. Dose of Valium being cutback. Patient seen by psychiatry. Bipolar disorder appears to be stable. Pulmonary did consult neurology. Review of systems: Was done for constitutional, cardiovascular, GI, pulmonary. relevant finding as above Active Medications Atorvastatin Calcium (Atorvastatin 10 Mg Tab) 10 mg PO [facility] Last Admin: 02/25/21 20:10 Dose: 10 mg Documented by: Clonidine HCl (Clonidine 0.1 Mg/24hr Patch) 1 patch TRANSDERM Q7D [facility] Last Admin: 02/25/21 13:37 Dose: 1 patch Documented by: Diazepam (Diazepam 5 Mg Tab) 5 mg PO Q8H [facility] Escitalopram Oxalate (Escitalopram 20 Mg Tab) 20 mg PO [facility] Last Admin: 02/25/21 20:10 Dose: 20 mg Documented by: Famotidine (Famotidine 20 Mg Tab) 20 mg PO BID [facility] Last Admin: 02/26/21 10:09 Dose: 20 mg Documented by: Dextrose/Sodium Chloride (Dextrose 5%-1/2ns Iv Soln) 1,000 mls @ 130 mls/hr IV .Q7H42M [facility] Last Admin: 02/26/21 04:20 Dose: 130 mls/hr Documented by: Lamotrigine (Lamotrigine 100 Mg Tab) 100 mg PO BID [facility] Last Admin: 02/26/21 10:10 Dose: 100 mg Documented by: Lorazepam (Lorazepam 2 Mg/Ml Inj) 1 mg IV Q2HR PRN PRN Reason: CIWA 8 or 9 Last Admin: 02/26/21 10:17 Dose: 1 mg Documented by: Lorazepam (Lorazepam 2 Mg/Ml Inj) 1 mg IV Q1HR PRN PRN Reason: CIWA 10 to 15 Last Admin: 02/25/21 23:21 Dose: 1 mg Documented by: Meloxicam (Meloxicam 7.5 Mg Tab) 15 mg PO HS [facility] Last Admin: 02/25/21 20:08 Dose: 15 mg Documented by: Metoprolol Tartrate (Metoprolol Tartrate 12.5 Mg Tab) 12.5 mg PO TID [facility] Last Admin: 02/26/21 10:11 Dose: 12.5 mg Documented by: Miscellaneous Information (Potassium Replacement Protocol 1 Each Misc) 1 each MISCELLANE DAILY PRN; Protocol PRN Reason: Per Protocol Miscellaneous Information (Magnesium Replacement Protocol 1 Each Misc) 1 each MISCELLANE DAILY PRN; Protocol PRN Reason: Per Protocol Multivitamins (Multivitamins, Thera 1 Each Tab) 1 each PO DAILY [facility] Last Admin: 02/26/21 10:16 Dose: 1 each Documented by: Naloxone HCl (Naloxone 0.4 Mg/Ml 1 Ml Vial) 0.2 mg IV Q2M PRN PRN Reason: Opioid Reversal Nicotine (Nicotine 21mg/24hr Patch) 1 patch TRANSDERM DAILY [facility] Last Admin: 02/26/21 10:12 Dose: Not Given Documented by: Non-Formulary Medication (Brexpiprazole [Rexulti]) 2 mg PO [facility] Last Admin: 02/25/21 21:49 Dose: Not Given Documented by: Ondansetron HCl (Ondansetron 4 Mg/2 Ml Vial) 4 mg IVP Q8HR PRN PRN Reason: Nausea And Vomiting Thiamine HCl (Thiamine 100 Mg/Ml 2 Ml Vial) 100 mg IVP DAILY [facility] Stop: 02/27/21 15:00 Past medical history to include: Bipolar, chronic low back pain, hyperlipidemia, chronic alcohol use disorder Social history: Lives alone. Smokes a pack a day. 6 drinking alcohol for many years. Does fencing work Family history: Reviewed, noncontributory to presentation Physical examination: VITAL SIGNS: Afebrile, 93, 18, 114/74, 94% room air GENERAL: Sitting up in bed, more comfortable. Less anxious EYES: Pupils equal. Conjunctiva normal. HEENT: External appearance of nose and ears normal, oral cavity grossly normal. NECK: JVD not raised; masses not palpable. HEART: First and second heart sounds are normal; no edema. LUNGS: Respiratory rate normal; clear to auscultation. ABDOMEN: Soft, nontender, liver spleen not palpable, no masses palpable. PSYCH: AO 3, mood and affect anxious much improved from yesterday NEUROLOGICAL: Greatly improved, tremors. INVESTIGATIONS, reviewed in the clinical context: February 26: White count 5 hemoglobin 12.2 platelets 166 potassium 3.5 crit 0.53 WBC 4.6 hemoglobin 12.7 platelets 41 potassium 2.8 BUN 10 creatinine 0.65 Lactic acid 3. 5 repeat 1.7 AST 78 ALT 87 lipase 255 EKG tracing personally reviewed by me-normal sinus rhythm, 116 Assessment and plan: -Acute delirium tremens long-standing alcoholic: Much improved sitter. Fall precautions. CIWA scale. . Also Lopressor 12.5 every 8 hours Decrease Valium to 5 mg every 8. DC Catapres that was used for withdrawal symptoms -Alcohol use disorder Consult social media marketer -Alcoholic hepatitis Follow outpatient -Severe thrombocytopenia likely from alcohol use disorder -Chronic nicotine dependence, cigarette smoker Nicotine patch 21 -Bipolar disorder. Stable Seen by psychiatry. Stable -Type II lactic acidosis, likely from fluid deficit IV fluids Patient doing better. Can be moved to the medical floor. DC Catapres patch. Cutback Valium to 5 mg every 8. Psychiatry consultation noted. Neurology cons ulted by Dr. Real
--- NOTE | 2021-02-26 15:43 | MR ---
PRE AND POSTCONTRAST ENHANCED MRI OF THE BRAIN: CLINICAL HISTORY: unsteady giat. Hx of alcohol use. R/O wernicke CONTRAST: Gadavist 9.5ml Multiplanar and multispin-echo imaging of the brain was performed both before and after the administr ation of contrast. The ventricles, basal cisterns and sulci overlying the cerebral convexities are within normal limits. There is no evidence for midline shift or mass effect. Acute intracranial hemorrhage or extra-axial collection is not evident. On diffusion weighted imaging there is increased signal noted within the bilateral thalami extending into the jacobsen radiata. On the T2 FLAIR data set there is increased signal noted about the third demario tricle. The findings can be seen in patients with Wernicke encephalopathy. Also small focal area of i ncreased signal within the anterior left temporal lobe and the FLAIR data set Following contrast administration, there is no evidence for pathologic enhancement or enhancing mass. Moderate opacification left maxillary sinus. Paranasal sinuses are otherwise well aerated. Mastoid ai r cells are well aerated as well. IMPRESSION: 1. Findings as noted above which may be on the basis of Wernicke encephalopathy. Correlate clinically .
[2021-02-26] MEDS: THIAMINE 100 MG/ML 2 ML VIAL IVP SCH (16:40)
[2021-02-26] MEDS: MELOXICAM 7.5 MG TAB PO SCH (20:02)
[2021-02-26] MEDS: ATORVASTATIN 10 MG TAB PO SCH (20:02)
[2021-02-26] MEDS: ESCITALOPRAM 20 MG TAB PO SCH (20:02)
[2021-02-26 20:33] LABS: Folate, Serum 16.5 ng/mL
[2021-02-26 22:03] LABS: Hemoglobin A1C 5.7 % (4.0-6.0)
[2021-02-26] MEDS: NON FORMULARY DRUG (Brexpiprazole [Rexulti] 2 MG Tablet) PO SCH (22:07)
[2021-02-27] MEDS: diazePAM 5 MG TAB PO SCH ×2 (01:00→08:00)
[2021-02-27] MEDS: LORazepam 2 MG/ML INJ IV PRN ×3 (01:07→08:01)
[2021-02-27] MEDS: DEXTROSE 5%-0.45% NACL 1,000 ML IV SCH ×2 (04:45→07:27)
[2021-02-27 06:59] VITALS: BP 130/74; PULSE 94; RESP 14; TEMP 98.2
[2021-02-27] MEDS: lamoTRIgine 100 MG TAB PO SCH (08:00)
[2021-02-27] MEDS: MULTIVITAMINS, THERA 1 EACH TAB PO SCH (08:00)
[2021-02-27] MEDS: METOPROLOL TARTRATE 12.5 MG TAB PO SCH (08:00)
[2021-02-27] MEDS: FAMOTIDINE 20 MG TAB PO SCH (08:00)
[2021-02-27] MEDS: NICOTINE 21MG/24HR PATCH TRANSDERM SCH (08:01)
[2021-02-27] MEDS: THIAMINE 100 MG/ML 2 ML VIAL IVP SCH (08:01)
--- NOTE | 2021-02-27 11:06 | P.PN ---
Subjective Progress Note Date: 02/27/21 The patient is seen at bedside and feels he is doing better. He feels his walking is improving compared to his initial presentation but not back to baseline. He denies of any new neurological deficits. He is schedule to have MRI Cervical and Lumbar today. Objective - Vital Signs Vital signs: Vital Signs Temp 98.2 F 02/27/21 06:17 Pulse 94 02/27/21 06:17 Resp 14 02/27/21 06:17 BP 130/74 02/27/21 06:17 Pulse Ox 100 02/27/21 06:17 Intake & Output 02/26/21 02/27/21 02/27/21 18:59 06:59 18:59 Intake Total 1690 600 Output Total 600 Balance 1090 600 Intake: IV 1590 Dextrose 5%-0.45% NaCl 1, 1490 000 ml @ 130 mls/hr IV . Q7H42M SARAH Rx#:[id number] Magnesium Sulfate-D5w Pmx 100 1 gm In Dextrose/Water 1 100ml.bag @ 100 mls/hr IVPB Q1H [facility] Rx#: [id number] Intake, IV Titration 100 360 Amount Dextrose 5%-0.45% NaCl 1, 360 000 ml @ 130 mls/hr IV . Q7H42M SARAH Rx#:[id number] Sodium Chloride 0.9% 1, 100 000 ml @ 130 mls/hr IV . Q7H42M STA Rx#:[id number] Oral 240 Output: Urine 600 Other: Voiding Method Urinal Urinal Urinal # Voids 4 1 # Bowel Movements 1 - Exam GENERAL: The patient is lying in bed and is not in acute distress. NEUROLOGICAL: Higher mental function: The patient is awake, alert, oriented to self, place and time. Patient is following commands. No aphasia and no neglect. Cranial nerves: The pupils are round, equal and reactive to light and accommodation. Visual dennis are full to confrontation throughout. Extraocular movement is intact no nystagmus is noted. Facial sensation is normal to touch throughout. The facial strength is normal throughout. Hearing is normal bilaterally to hand rub. Tongue is midline and moved [id number] without any difficulty. No dysarthria is noted. Shoulder shrug is normal bilaterally. Motor: Seems white base gait and slight walking in forefoot/tips toes (but seems better today compared to yesterday). The strength is bilateral ankle eversion are 3/5. Otherwise 5 over 5 throughout. Normal tone and bulk. Patient had arched feet bilaterally. No spontaneous resting tremors or jerking of any extremities. Cerebellum: Normal finger to nose heel to kang bilaterally. Sensation: Sensation is normal to touch throughout. But to pinprick decreased from mid-calf all way down to tip of toes. Reflexes (right/left): 2+ throughout except ankles are 0 bilaterally.. Plantars are mute bilaterally. WORK-UP: Vitamin B12 is 857, folate is 16.5 and both are within normal limits TSH is 0.989 which is within normal limits. Hemoglobin A1c is 5.7 which is within normal limits. MRI the brain is reported as finding as noted above which may be on the basis of Wernicke encephalopathy. Correlate clinically. - Labs CBC & Chem 7: 02/26/21 04:07 02/26/21 04:07 Labs: Microbiology - Last 24 Hours (Table) 02/25/21 10:15 Urine Culture - Final Urine,Voided Assessment and Plan Assessment: * Unsteady gait: (per patient for 4 days prior to presentation but improving. on examination he has unsteady gait, decreased sensation to pinprick from mid- calf to tips of toes, absent ankle reflexes and arched feet and weakness ankle eversion. Has similar episode 4 months ago and resolved). Due to Wernicke BUT cannot rule out Charcot florencio tooth disease (especially with pes cavus bilaterally, neuropathy and weakness of lower extremities and chronic lower back pain).--gait is improving. * Bipolar * Generalized anxiety disorder * Chronic Heavy alcohol use * Nicotine use Plan: * Patient is on IV thiamine 100 mg daily. Will switch to 100mg bid starting tomorrow. * Thiamine level is ordered by ICU team and is pending. * Pending Cervical and Lumbar spine. * Patient is on Ativan for CIWA protocol and will defer managment to primary team and ICU team. * Physical therapy and occupation therapy are consulted. * Recommend EMG with NCS as outpatient. * We'll defer the rest of the medical measurements the primary and ICU team. * Patient was counseled on alcohol and tobacco cessation. * Patient was notified to follow-up with a neurologist as outpatient within 1-2 weeks as outpatient (gave patient neurology script referral for outpatient. He stated he will attempt to call either academic center over at [facility] or [facility] or will follow-up with a Neurologist over [facility]). The plan is discussed with the patient. If the MRI Cervical and Lumbar are normal or not performed today then patient would like to be discharged and get them as outpatient. Duy Real MD Neuro-Hospitalist Time with Patient: Less than 30
--- NOTE | 2021-02-27 14:46 | MR ---
EXAMINATION TYPE: MR cspine/lspine wo/w con DATE OF EXAM: 02/27/2021 COMPARISON: None HISTORY: Unsteady gait, weakness or ankles and neurpathy CONTRAST: Standard multiplanar, multisequence MRI departmental protocol utilizing 9.5 mL intravenous Gadavist g adolinium contrast. Cervical vertebra have normal alignment. Disc spaces are fairly well-maintained. Posterior elements a re intact. There is minimal posterior disc bulging at C4-5 and C5-6 and C6-7. Cervical spinal cord ap pears normal. There is no edema. There is no cervical spinal stenosis. There is developmentally large spinal canal. There is no cervical paraspinal mass. Facet joints are intact. Exam appears intact. Co ntrast images show no pathologic enhancement of the cervical spine. The lumbar vertebra have normal spacing and alignment. Posterior elements are intact. Facet joints ar e intact. There is a small posterior left side L5-S1 disc bulge without impingement on the neural brad ments. There is developmentally large neural foramina. There is no compression fracture. Lumbar nerve roots appear normal. There is no pathologic enhancement of the lumbar spine. IMPRESSION: Small posterior multilevel disc bulging in the cervical spine without spinal stenosis. Normal cervica l disc spaces. Small posterior left side L5-S1 disc bulge. Otherwise negative MR scan lumbar spine.
--- NOTE | 2021-02-27 18:42 | P.DS ---
Providers Date of admission: 02/25/21 06:51 Expected date of discharge: 02/27/21 Attending physician: Booker Cooney Consults: 02/25/21 13:34 Consult Physician Stat Consulting Provider: Rudy Real Consult Reason/Comments: icu Do you want consulting provider notified?: Yes 02/25/21 15:43 Consult Physician Routine Consulting Provider: Brendan Mckenzie Consult Reason/Comments: Delusions Do you want consulting provider notified?: Yes 02/26/21 08:32 Consult Physician Routine Consulting Provider: Duy Real Consult Reason/Comments: Difficulty walking, Wernicke's syndrome Do you want consulting provider notified?: Yes Primary care physician: [facility] Course: 41-year-old gentleman with history of chronic heavy alcohol use, bipolar and generalized anxiety disorder who use presented emergency department on 02/25/2021 for feel tremulous/shaking of entire body. Patient stated that about 4 days ago he noticed that he's having unsteady walking and progressively getting worse to the point that he could not get out of the lower. He said he fell because of his unsteady walking. He stated then that 2 days ago he felt like he was shaken throughout his body. He denied any loss of consciousness, urinary bowel incontinence, tongue bite. Patient denied of any fever recently. Any upper respiratory tract infection recently. He denies any numbness or any tingling. He denies any visual disturbance, any difficulty getting his words out, any double vision, any difficulty swallowing. He denies any numbness tingling that started in the feet and went up. He felt like he was not thinking clearly about 2 days ago but currently is doing better. The patient and he has a history of chronic alcohol use and he binges drinks vodka once a month lasting 3-7 days and he drinks about half a gallon a day when he binges. The last time he had binge drink was about 2 weeks ago. The patient has been drinking most of his life he stated. He stated that he had similar episode that he had unsteady gait and could not walk and that was about 4 month ago and the he was evaluated at [facility]. He stated that he had MRI of the brain and it was the normal. He had physical therapy and the he stated that he was back on his feet walking without any issues. Patient stated that he has chronic lower back pain but that that hasn't changed. Currently he does not have any diarrhea and I stated that no urinary or bowel incontinence. Patient does smoke 1 pack a day. He denies any illicit drug use. Patient denies any medication change and it's been wild. Patient feels his symptoms is drastically getting better but he still not acting his baseline. He feels his tremors has drastically improved. Patient denies any history of seizures or family history of seizures. Patient is on Lamictal for mood and he does not have any seizures. Patient denies any family history similar to his. Home medication consist of Lexapro, Lamictal 100 mg 1 tablet twice a day, meloxicam, Lipitor 10 mg daily at bedtime, Xanax 1 mg twice a day when necessary (takes it 1 tab every 3-4 days and it has been going on for years). In the hospital started patient the has Wernicke syndrome. And that was admitted per the medical record for alcohol withdrawal syndrome. He is on [facility] protocol. Some of the work-up: Initial vital signs blood pressure of 142/91, heart rate of 124, respiratory of 18, temperature initially is 100.0 Fahrenheit oral and pulse ox of 97% at room air. Patient has not had any further elevation of temperature. Patient heart rate came T and initially was in the 110 to 120s and most recently it's about 90s to 110. White blood cell on presentations 4.6 and the repeat is 5.0 thousand which is within normal limits. Platelet count on presentation 41 which is significantly low with a repeat is 166. MCV is 90.7 which is within normal limits. Sodium is 137, calcium is 9.2, creatinine is 0.65 which are within normal limits On presentation the AST 78 and ALT is 87 which are slightly elevated, glucose 127 also minimally elevated not but not drastically. Plasma lactic acid venous 3.5 which is elevated. The he K level DCCLXI which is slightly elevated lipase to 55 which is within normal limits Patient was evaluated by neurology --- given Unsteady gait: (per patient for 4 days prior to presentation but improving. on examination he has unsteady gait, decreased sensation to pinprick from mid-calf to tips of toes, absent ankle reflexes and arched feet and weakness ankle eversion. Has similar episode 4 months ago and resolved). Seems there is component of neuropathy due severe alcohol use BUT cannot rule out Charcot florencio tooth disease (especially with pes cavus bilaterally, neuropathy and weakness of lower extremities and chronic lower back pain). MRI of the cervical spine and lumbar spine was done which revealed small posterior multilevel disc bulging and cervical spine without stenosis and small posterior left sided L5-S1 disc bulge Patient was discharged home in a stable condition with recommendations to follow PCP and neurology in 1-2 weeks Patient Condition at Discharge: Serious Plan - Discharge Summary Discharge Rx Participant: No New Discharge Prescriptions: New Metoprolol Tartrate [Lopressor] 12.5 mg PO TID #90 tab Multivitamins, Thera [Multivitamin (formulary)] 1 each PO DAILY tab Thiamine [Vitamin B-1] 100 mg PO BID tab Continue ALPRAZolam [Xanax] 1 mg PO BID PRN PRN Reason: ANIXETY lamoTRIgine [LaMICtal] 100 mg PO BID Brexpiprazole [Rexulti] 2 mg PO HS hydrOXYzine pamoate [hydrOXYzine PAMOATE] 50 mg PO HS PRN PRN Reason: Insomnia Atorvastatin [Lipitor] 10 mg PO HS Escitalopram [Lexapro] 20 mg PO HS Meloxicam 15 mg PO HS Discharge Medication List ALPRAZolam [Xanax] 1 mg PO BID PRN 05/22/18 [History] Atorvastatin [Lipitor] 10 mg PO HS 02/25/21 [History] Brexpiprazole [Rexulti] 2 mg PO HS 02/25/21 [History] Escitalopram [Lexapro] 20 mg PO HS 02/25/21 [History] Meloxicam 15 mg PO HS 02/25/21 [History] hydrOXYzine pamoate [hydrOXYzine PAMOATE] 50 mg PO HS PRN 02/25/21 [History] lamoTRIgine [LaMICtal] 100 mg PO BID 02/25/21 [History] Metoprolol Tartrate [Lopressor] 12.5 mg PO TID #90 tab 02/27/21 [Rx] Multivitamins, Thera [Multivitamin (formulary)] 1 each PO DAILY tab 02/27/21 [Rx] Thiamine [Vitamin B-1] 100 mg PO BID tab 02/27/21 [Rx] Follow up Appointment(s)/Referral(s): Nam Norman DO [Primary Care Provider] - 1-2 days Patient Instructions/Handouts: Hypokalemia (DC), Hypomagnesemia (DC) Discharge Disposition: HOME SELF-CARE
[2021-02-28] MEDS ORDERED: THIAMINE 100 MG TAB PO SCH (09:00)
== END 2021-02-27 15:58 | disposition home or self-care (01) | DRG 897 ==
LOC: EC 04:54 → 4SSUR 06:51 → 2SICU 13:21 → 4SSUR 02-27 04:54
PROVIDERS: ADMIT Hospitalist; ATTEND Hospitalist
DX: F10.231 Alcohol dependence with withdrawal delirium (principal); E51.2 Wernicke's encephalopathy; E87.2 Acidosis; D69.59 Other secondary thrombocytopenia; E83.42 Hypomagnesemia; E87.6 Hypokalemia; F17.210 Nicotine dependence, cigarettes, uncomplicated; F22 Delusional disorders; F31.9 Bipolar disorder, unspecified; F41.1 Generalized anxiety disorder; G89.29 Other chronic pain; Z79.899 Other long term (current) drug therapy; K70.10 Alcoholic hepatitis without ascites; M54.5 Low back pain; R26.2 Difficulty in walking, not elsewhere classified
CPT/HCPCS: 36415; 70553; 72156; 72158; 80053; 81001; 82550; 82607; 82746; 82747; 83036; 83605; 83690; 83735; 84100; 84132; 84207; 84425; 84443; 84484; 85025; 85610; 85730; 87086; 93005; 96361; 96365; 96366; 96367; 96372; 96375; 96376; 99291